=== PATIENT | female | born 1935 | race Caucasian/White ===

== ENCOUNTER 2022-03-20 21:00 | Emergency (ER) | payer MEDICARE, OTHER, SELFPAY ==
[2022-03-20 21:01] VITALS: BP 167/55; PULSE 63; RESP 18; TEMP 37.1; O2SAT 94; BMI 19.5
--- NOTE | 2022-03-20 21:23 | XRR_ITS ---
PROCEDURE INFORMATION: Exam: XR Chest Exam date and time: 03/20/2022 9:46 PM Age: 86 years old Clinical indication: Shortness of breath; Additional info: SOB TECHNIQUE: Imaging protocol: Radiologic exam of the chest. Views: 1 view. COMPARISON: CR Chest 1 [place] [id number] 01/06/2019 4:41 PM FINDINGS: Lungs: Hazy left basilar opacity which could be secondary to atelectasis or pneumonia. Pleural spaces: Unremarkable. No pleural effusion. No pneumothorax. Heart/Mediastinum: There is mild cardiomegaly. Bones/joints: Unremarkable. Organs: There has been a cholecystectomy. XR/XR chest 1V portable [id number] IMPRESSION: 1. Hazy left basilar opacity which could be secondary to atelectasis or pneumonia. 2. Mild cardiomegaly.
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
[2022-03-20 21:50] LABS: Basophils # 0.1 10^3/uL (0.0-0.1); Basophils % 0.9 %; Eosinophils # 0.1 10^3/uL (0.0-0.8); Eosinophils % 1.5 %; Hematocrit 38.5 % (37.0-47.0); Hemoglobin 12.8 g/dL (11.5-15.3); Mean Corpuscular HGB Conc 33.2 g/dL (30.0-36.0); Mean Corpuscular Hemoglobin 27.6 pg (28.0-34.0); Mean Corpuscular Volume 83.2 fl (81-99); Mean Platelet Volume 11.9 fL (7.4-10.4); Monocytes # 0.5 10^3/uL (0.2-0.9); Monocytes % 7.3 %; Neutrophils # 3.95 10^3/uL (1.8-7.7); Nucleated Red Blood Cells % 0 %; Platelet Count 193 10^3/cmm (130-400); Red Blood Count 4.63 10^6/uL (4.1-5.3); Red Cell Distribution Width 13.5 % (12.1-15.1); White Blood Count 6.6 10^3/uL (4.0-10.0)
[2022-03-20 22:05] LABS: Anion Gap 14.1 (5-19); Blood Urea Nitrogen 23 mg/dL (8-23); Calcium 9.1 mg/dL (8.5-10.5); Carbon Dioxide 29 mmol/L (22-29); Chloride 103 mmol/L (98-107); Glucose 97 mg/dL (65-115); Osmolality Calculated 298 mOsm/kg (285-295); Potassium 4.1 mmol/L (3.5-5.1); Sodium 142 mmol/L (136-145)
[2022-03-20 23:31] VITALS: PULSE 78; RESP 17; O2SAT 97
== END 2022-03-20 23:35 | disposition home or self-care (01) ==
PROVIDERS: Emergency Provider Emergency Medicine
DX: F03.90 Unspecified dementia, unspecified severity, without behavioral disturbance, psychotic disturbance, mood disturbance, and anxiety (principal)
CPT/HCPCS: 71045; 80048; 85025; 99283

== ENCOUNTER 2022-03-21 00:16 | Emergency (ER) | payer MEDICARE, OTHER, SELFPAY ==
--- NOTE | 2022-03-21 02:04 | ECG_ITS ---
[facility] Test Date: 2022-03-21 Pat Name: Kati Guadalupe Department: Room: Gender: Female Build Manager: : 1935 Requested By: Jian De La O Order Number: [id number] Odilon MD: Yesenia Mckeon M.D. Measurements Intervals [place] Rate: 64 P: 74 [place]: 182 QRS: -26 QRSD: 125 T: 135 QT: 418 QTc: 432 Interpretive Statements SINUS RHYTHM POSSIBLE LEFT ATRIAL ENLARGEMENT [-0.1mV P-WAVE IN V1/V2] BORDERLINE LEFT AXIS DEVIATION [QRS AXIS < -20] RIGHT BUNDLE BRANCH BLOCK LEFT VENTRICULAR HYPERTROPHY AND ST-T CHANGE Compared to ECG 01/06/2019 17:20:33 Left ventricular hypertrophy now present ST (T wave) deviation now present Ventricular premature complex(es) no longer present Left anterior fascicular block no longer present T-wave abnormality no longer present Possible ischemia no longer present Electronically Signed On 03-21-2022 13:01:03 CDT by Yesenia Mckeon M.D. [id number]
[2022-03-21 02:42] LABS: Thyroid Stimulating Hormone 2.66 uIU/mL (0.27-4.20)
[2022-03-21 02:48] VITALS: BP 150/78; PULSE 89; RESP 17; TEMP 36.8; O2SAT 97
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
--- NOTE | 2022-03-21 07:20 | PC.NURSE ---
while at bedside pt is resting quietly with eyes closed on left side in bed. pt has good chest rise and fall.
[2022-03-21 07:22] LABS: Adenovirus Not Detected (NOT DETECT); Chlamydia Pneumoniae Not Detected (NOT DETECT); Coronavirus 229E,HKU1,NL63,OC4 Not Detected (NOT DETECT); Human Metapneumovirus Not Detected (NOT DETECT); Human Rhinovirus/Enterovirus Not Detected (NOT DETECT); Influenza A Not Detected (NOT DETECT); Influenza A H1 Not Detected (NOT DETECT); Influenza A H1-2009 Not Detected (NOT DETECT); Influenza A H3 Not Detected (NOT DETECT); Influenza B Not Detected (NOT DETECT); Mycoplasma Pneumoniae Not Detected (NOT DETECT); Parainfluenza Virus Type 1 Not Detected (NOT DETECT); Parainfluenza Virus Type 2 Not Detected (NOT DETECT); Parainfluenza Virus Type 3 Not Detected (NOT DETECT); Parainfluenza Virus Type 4 Not Detected (NOT DETECT); Respiratory Syncytial Virus A Not Detected (NOT DETECT); Respiratory Syncytial Virus B Not Detected (NOT DETECT); SARS-COV-2 Not Detected (NOT DETECT)
--- NOTE | 2022-03-21 08:09 | PC.NURSE ---
breakfast tray provided to pt.
--- NOTE | 2022-03-21 10:27 | PC.NURSE ---
WHILE AT BEDSIDE PT IS RESTING QIUETLY WITH EYES CLOSED SUPINE IN BED. PT HAS GOOD CHEST RISE AND FALL.
[2022-03-21 12:00] VITALS: BP 185/89; PULSE 69; RESP 18; TEMP 36.6; O2SAT 96
[2022-03-21 14:20] LABS: Add Urine Microscopic? NO; Charge for UA Resulting for Rev
[2022-03-21 14:29] LABS: Urine Appearance Clear (CLEAR); Urine Color Yellow (Yellow)
[2022-03-21 14:30] LABS: Bilirubin Urine Neg (Negative); Blood Urine Neg (Negative); Glucose Urine UA Norm (Normal); Ketones Urine Negative (Negative); Leukocyte Esterase Urine Negative (Negative); Nitrate Urine Negative (Negative); Protein Urine Neg (Negative); Urobilinogen Urine Norm (Negative); pH Urine 5 (5-7)
[2022-03-21] MEDS: LORazepam 2 mg/mL INJ 1 mL 1 MG IM (14:33)
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
[2022-03-21 14:45] LABS: Amphetamines Screen Urine Negative (Negative); Barbiturates Screen Urine Negative (Negative); Benzodiazepines Screen Urine Negative (Negative); Cocaine Screen Urine Negative (Negative); Opiate Screen Urine Positive (Negative); PCP Screen Urine Negative (Negative); THC Screen Urine Negative (Negative)
--- NOTE | 2022-03-22 03:14 | PC.NURSE ---
ambrosio attempted to obtain vitals and patient standing at side of bed . unable to deescalate patients. provider at bedside . Patinet becoming unruly and uncooperative. Will administer Geodon per order.
[2022-03-22] MEDS: ziprasidone 20 mg/mL SDV 10 MG IM (03:15)
--- NOTE | 2022-03-22 03:48 | PC.NURSE ---
03/21 2000 - patient sleeping comfortably in bed at this time. patient in no obvious distress. Even chest rise and fall noted upon assessment. Safety checks done and sitter at bedside.
--- NOTE | 2022-03-22 03:49 | PC.NURSE ---
03/22/2022 0015- patient sleeping comfortably in bed . attempted to awake patient and replied leave me the hell alone. patient back to sleep with no difficulties. Even chest rise and fall noted . patient in no obvious distress. Safety checks done and sitter at bedside.
--- NOTE | 2022-03-22 03:53 | PC.NURSE ---
patient resting comfortably sleeping in bed at this time. patient in no obvious distress. even chest rise and fall noted . Safety checks done and sitter at bedside.
--- NOTE | 2022-03-22 05:21 | PC.NURSE ---
attempted to obtain vitals and patient unable/unwilling to stay still. will attempt again shortly. patient with noted even chest rise and fall . safety checks done and sitter at bedside.
--- NOTE | 2022-03-22 07:42 | PC.NURSE ---
[facility] called & they are unable to accept the pt for admission d/t her level of aggression.
[2022-03-22 12:00] VITALS: BP 188/71; PULSE 64; RESP 18; TEMP 36.3; O2SAT 96
[2022-03-22] MEDS: LORazepam 2 mg/mL INJ 1 mL 1 MG IM (15:35)
--- NOTE | 2022-03-22 16:43 | PC.NURSE ---
Walked pt in the halls for approx 20 minutes. She became upset bc she wanted to leave the unit. Multiple attempts to redirect pt. Adm ativan IM. She did walk for approx 30 more minutes & now resting in bed. Pericare & clean gown provided.
[2022-03-22 18:05] VITALS: BP 131/84; PULSE 68; RESP 18; TEMP 36.6; O2SAT 96
== END 2022-03-22 18:06 ==
PROVIDERS: Emergency Medicine; Emergency Provider Family Medicine
DX: F03.91 Unspecified dementia, unspecified severity, with behavioral disturbance (principal); R45.1 Restlessness and agitation; Z20.822 Contact with and (suspected) exposure to COVID-19
CPT/HCPCS: 80306; 81003; 84443; 87635; 93005; 96372; 99284; J2060; J3486